=== PATIENT | male | born 1985 | race Hispanic/Latino ===

== ENCOUNTER 2021-12-06 20:59 | Emergency (ER) | payer OTHER ==
[~2021-12-06 20:59] MED LIST: Iopamidol 370 76% 100 ML VIAL ONE
[2021-12-06] MEDS ORDERED: Morphine 4 MG/ML VIAL ONE ×2 (21:28→23:38)
[2021-12-06] MEDS ORDERED: Ondansetron PF 4 MG/2 ML Vial ONE (21:28)
[2021-12-06 21:41] LABS: %Neutrophils 68.9 % (42.0-75.0); Hemoglobin 8.7 g/dL (14.0-18.0); Manual Diff?? NO; Mean Corpuscular HGB CONC 31.7 g/dL (32.0-36.0); Mean Corpuscular Hemoglobin 27.7 pg (27.0-31.0); Mean Corpuscular Volume 87.5 fL (78.0-98.0); Mean Platelet Volume 4.6 fL (7.4-10.4); Platelet Count 781 thou/uL (130-400); RBC Distribution Width 15.7 % (11.5-14.5); Red Blood Cell (RBC) Count 3.14 mill/uL (4.70-6.10); White Blood Cell (WBC) Count 10.8 thou/uL (4.8-10.8)
[2021-12-06 21:42] LABS: #Basophils 0.2 thou/uL (0.0-0.2); #Eosinphils 0.4 thou/uL (0.0-0.7); #Lymphocytes 1.7 thou/uL (1.20-3.40); #Neutrophils 7.5 thou/uL (1.40-6.50); %Basophils 2.2 % (0.0-1.0); %Eosinophils 3.7 % (0.0-10.0); %Lymphocytes 15.8 % (21.0-51.0); %Monocytes 9.5 % (0.0-10.0)
[2021-12-06 21:46] LABS: ALT (SGPT) 11 U/L (8-55); AST (SGOT) 15 U/L (5-34); Albumin 2.8 g/dL (3.5-5.0); Alkaline Phosphatase 68 U/L (40-110); Anion Gap 17 mmol/L (10-20); BUN (Urea Nitrogen) 14 mg/dL (8.9-20.6); Bilirubin, Total 0.2 mg/dL (0.2-1.2); Calc. Creatinine Clearance 0 mL/min (70-130); Calcium 9.1 mg/dL (7.8-10.44); Carbon Dioxide 21 mmol/L (22-29); Chloride 100 mmol/L (98-107); Globulin 4.3 g/dL (2.4-3.5); Glucose 96 mg/dL (70-105); Potassium 4.3 mmol/L (3.5-5.1); Protein, Total 7.1 g/dL (6.0-8.3); Sodium 134 mmol/L (136-145)
[2021-12-06 22:19] LABS: INR-International Normal Ratio 1.1; PTT 43.3 sec (22.9-36.1); Prothrombin Time 14.8 sec (12.0-14.7)
[2021-12-06 22:24] LABS: Bilirubin Negative (Negative); Blood, Urine Trace (Negative); Clarity Clear (Clear); Glucose, Urine (Dipstick) Negative (Negative); Ketone, Urine 80 mg/dL (Negative); Leukocyte Negative (Negative); Nitrite Negative (Negative); Protein, Urine (Dipstick) Negative (Neg-Trace); Urobilinogen 0.2 mg/dL (Less than 2)
[2021-12-06 22:31] LABS: Bacteria/HPF Rare-Few HPF (None Seen); Mucous/LPF 2+ LPF (<2+); RBC/HPF 0-3 HPF (0-3); Squamous Epithelial 0-3 HPF (0-3); WBC/HPF 0-3 HPF (0-3)
[2021-12-06] MEDS ORDERED: methylPREDNISolone Sod Succ 40 MG VIAL ONE (22:57)
[2021-12-06 23:33] LABS: SARS-CoV-2 NAA Rapid Test Not Detected (NotDetected)
[2021-12-07] MEDS ORDERED: Bupivacaine 0.5% 10 ML VIAL ONE (00:03)
== END 2021-12-07 02:04 | disposition short-term general hospital (02) ==
LOC: NAV ERS 20:59
DX: K51.90 Ulcerative colitis, unspecified, without complications (principal); E86.9 Volume depletion, unspecified; R00.0 Tachycardia, unspecified; Z20.822 Contact with and (suspected) exposure to COVID-19; Z87.891 Personal history of nicotine dependence; Z79.899 Other long term (current) drug therapy
CPT/HCPCS: 74177; 80053; 81003; 81015; 82274; 85025; 85610; 85730; 86140; 87045; 87046; 87081; 87324; 87427; 87449; 96374; 96375; 96376; J2270; J2405; J2920; J3490; Q9967; U0002